=== PATIENT | female | born 1960 | race Caucasian/White ===

== ENCOUNTER 2017-12-06 08:05 | Outpatient (RCR) | payer OTHER ==
[~2017-12-06 08:05] MED LIST: ABILIFY5 MG PO; AMLODIPINE-VALSARTAN PO; ATORVASTATIN CA20 MG PO; NUVIGIL250 MG PO; SERTRALINE HCL100 MG PO
== END 2017-12-08 ==
LOC: PT 08:05
PROVIDERS: ATTEND Specialist
DX: M75.41 Impingement syndrome of right shoulder (principal); M19.011 Primary osteoarthritis, right shoulder; M25.511 Pain in right shoulder; M25.611 Stiffness of right shoulder, not elsewhere classified; M62.81 Muscle weakness (generalized)

== ENCOUNTER 2018-01-03 08:00 | Outpatient (RCR) | payer OTHER | END 2018-01-08 | LOC: PT 08:00 | PROVIDERS: ATTEND Specialist | DX: M75.41 Impingement syndrome of right shoulder (principal); M19.011 Primary osteoarthritis, right shoulder; M25.511 Pain in right shoulder; M25.611 Stiffness of right shoulder, not elsewhere classified; M62.81 Muscle weakness (generalized) ==

== ENCOUNTER → 2024-03-12 | Outpatient (REF) | payer OTHER | LOC: RAD 13:50 | PROVIDERS: ATTEND Internal Medicine | DX: Z01.818 Encounter for other preprocedural examination (principal) | CPT/HCPCS: 71046; 93005 ==